=== PATIENT | male | born 1990 | race Caucasian/White ===

== ENCOUNTER 2020-04-22 01:54 | Outpatient (CLI) | payer BC, SELFPAY ==
[2020-04-22 07:56] LABS: Hemoglobin A1C 5.2 % (<5.7)
[2020-04-22 09:01] LABS: Calculated LDL 143 mg/dL (<100); Cholesterol 209 mg/dL (<200); HDL Cholesterol 28 mg/dL (40-60); Triglyceride 191 mg/dL (<150)
== END 2020-04-22 02:14 ==
PROVIDERS: PCP Nurse Practitioner Family; Visit Provider Nurse Practitioner Family
DX: Z13.1 Encounter for screening for diabetes mellitus (principal); Z13.220 Encounter for screening for lipoid disorders
CPT/HCPCS: 36415; 80061; 83036

== ENCOUNTER 2021-08-08 02:32 | Emergency (ER) | payer BC, SELFPAY ==
[2021-08-08 02:35] VITALS: PULSE 88; RESP 18; TEMP 36.7; O2SAT 99
[2021-08-08 02:38] VITALS: BP 165/100
--- NOTE | 2021-08-08 02:43 | W.ED.GENAD ---
Discharge Plan Disposition Patient Disposition: HOME Condition: Stable Discharge Details Clinical Impression: Gastroesophageal reflux disease, Hematemesis Primary Care Provider: Rajat Ta ED Provider: Alban Ken Home Meds and New Rx's Prescriptions: New omeprazole 40 mg capsule,delayed release(DR/EC) 40 mg PO DAILY Qty: 30 0RF Discharge Instructions Instructions: GERD (Gastroesophageal Reflux Disease) (ED) Additional Instructions: Your blood work did not show evidence of life threatening bleed and your vital signs were normal Your white cell count was elevated which is likely a stress response. You should have your cbc rechecked with your primary care provider within 1-2 weeks if you feel more ill, have difficulty breathing, chest or abdominal pain return to the emergency department or if you have repeated episodes of bloody vomit you should be contacted with an appointment with general surgery Medical Decision Making 31 yo male with hx of gerd normally treated with nexium but hasn't taken in month's due to cost per patient comes in with an episode where he had bright red blood in his vomit. He states it is not uncommon for him to wake up and have upset stomach and sometimes vomit. He went to bed feeling well but then woke up with nausea and had an episode of vomit. He then vomitted again and had bright red blood x2. Denies any history of hepatic disease. He has a few alcoholic beverages a week. He arrives stable and in no distress. He is speaking in full sentences, clear lungs, soft nontender abdomen and no chest pain. No melena. Suspect this is related to his gerd and possible ulcer, no findings to suggest underlying liver disease. Will obain cbc and cmp and treat with ppi. labs show wbc of 27 otherwise unremarkable. He denies any recent fevers or infectious symptoms and suspect this could be a stress response. He is asymptomatic still and has no abdominal tenderness at all. His ezio blatchford score is 0 so he is low risk enough for outpatient follow up and he is comfortable with this. Will start ppi and refer to general surgery holden, return precautions given Differential Diagnosis Differential Diagnosis: ulcer, maggy parker, upper gi bleed Medical Records Medical records reviewed: Yes I reviewed the patient's medical records. Lab Data Lab results reviewed: Yes I reviewed the patient's lab results. HPI General Mode of arrival: ambulatory. Date/Time Provider Initiated Documentation: 08/08/21 02:34. Limitations to Documentation: no limitations. Information obtained by: patient. History of Present Illness 31 year old M presents to the emergency department with the chief complaint of vomit blood, described as moderate, Patient started experiencing this hour(s) (1) and it has been now resolved. improves with No relieving factors improve symptom(s), No exacerbating factors reported . Patient did receive the following treatments prior to arrival, none Related Data Home Medications Medication Instructions Recorded Confirmed omeprazole 40 mg capsule,delayed 40 mg PO DAILY #30 cap 08/08/21 release Previous Rx's Medication Instructions Recorded omeprazole 40 mg capsule,delayed 40 mg PO DAILY #30 cap 08/08/21 release Allergies Allergy/AdvReac Type Severity Reaction Status Date / Time No Known Allergies Allergy Verified 04/16/20 09:03 General Stated Complaint: Nausea/Vomit/Diar KATELYN: 3 Review of Systems All systems reviewed & are unremarkable except as noted in HPI and below Constitutional Constitutional: Denies chills, Denies fever(s) and Denies weakness Eyes Eyes: Denies loss of vision ENT Ears, Nose, Mouth, and Throat: Denies change in voice Cardiovascular Cardiovascular: Denies chest pain and Denies dyspnea Respiratory Respiratory: Denies cough and Denies dyspnea Integumentary/Breasts Skin/Breast: Denies rash Neurologic Neurologic: Denies loss of vision and Denies weakness PFSH All Active Problems (Updated 08/08/21 @ 03:35 by Alban Ken MD) Hematemesis (Acute) Smoker (Acute) Screening cholesterol level (Acute) Diabetes mellitus screening (Acute) Acromioclavicular joint separation, type 3 (Acute 12/22/15) Gastroesophageal reflux disease (Acute 07/01/15) Medical History (Updated 08/08/21 @ 03:35 by Alban Ken MD) Anxiety GERD (gastroesophageal reflux disease) Surgical History (Updated 09/27/17 @ 10:37 by Bebe Mesa RN) EGD - MAC (09/21/17) Family History (Updated 04/21/20 @ 08:59 by Rose Marie Tsai) Mother Diabetes Brother Depression Alcohol abuse Grandmother Diabetes Social History (Updated 04/21/20 @ 08:58 by Rose Marie Tsai) Smoking/Tobacco Use Status: Current every day Tobacco Type: cigarettes Smoking packs per day: 1.5 Smoking cigarettes per day: 30.0 Second Hand Exposure: Yes Smoking risk assessment performed?: Yes Alcohol Intake: current Alcohol Intake frequency: a few times a week Alcohol type: hard liquor Drug use: Daily Substance use type: marijuana Caregiver/Support person: No Household members: significant other and children Housing: house Communication Needs: None Do you need help understanding health information?: Never Pets and animals: Yes Pets and animals: cat(s) and dog(s) Sexually active: Yes Do you think of yourself as: straight/heterosexual Current gender identity: male What is your relationship status?: living with partner How often do you talk on the phone with friends or family?: three or more times per week How often do you get together with friends or relatives?: once per week How often do you attend denominational or baptism services?: 1-3 times per year Do you belong to any clubs or organized social groups?: no Panel score (0-1 are the most socially isolated patients): 2 What type of physical activity do you participate in: none Shanique/Scientologist: Rastafari Special shanique needs: No Seatbelt use: always Helmet use: Yes Helmet use: always Drive intox or ride w/intox taxi cab driver: No Do you feel safe at home: Yes Do you feel safe in your relationship?: Yes Victim of physical abuse: No Victim of emotional abuse: No Victim of sexual abuse: No Would you like helpful sources: No Exam Const General: no acute distress Orientation: alert HENID Head: normal to inspection Ears: external ears normal General nose exam: external nose normal Mouth: moist mucous membranes Eyes General: appearance normal, both eyes and all related structures Neck Neck: normal visual inspection Resp Effort & Inspection: normal respiratory effort and able to speak in complete sentences Cardio Rate: regular rate GI Palpation: soft and nontender Skin General skin exam: no rashes or lesions noted Neuro General: patient alert and patient oriented x3 Extrem General: normal to inspection Psych Mental Status: mental status grossly normal Course Vital Signs Vital signs: Vital Signs Temperature 36.7 C 08/08/21 02:35 Pulse 88 08/08/21 02:35 Respiratory Rate 18 08/08/21 02:35 Pulse Oximetry 99 08/08/21 02:35 Temperature 36.7 C 08/08/21 02:35 Temperature Source Tympanic 08/08/21 02:35 Pulse 88 08/08/21 02:35 Respiratory Rate 18 08/08/21 02:35 Respiratory Effort 08/08/21 02:37 Blood Pressure 165/100 H 08/08/21 02:38 Blood Pressure Position Supine 08/08/21 02:35 Pulse Oximetry 99 08/08/21 02:35 Oxygen Delivery Method Room Air 08/08/21 02:35 Oxygen Flow Rate 0 08/08/21 02:35 Pain Level 6 08/08/21 02:35 PAWSS Have you Been Recently Intoxicated or Drunk Within the Last 30 days?: Yes Have you Ever Experienced Previous Episodes of Alcohol Withdrawal?: No Have you ever Experienced Withdrawal Seizures?: No Have you ever Experienced Delirium Tremens(DT)s?: No Have you ever undergone Alcohol Rehabilitation Treatment (i.e, inpt ot outpatient treatment programs)?: No Have you ever Experienced Blackouts?: No Have you ever Combined Alcohol with other Downers within the last 90 days?: No Have you ever Combined Alcohol with any other Substance of Abuse during the last 90 days?: No Positive Blood Alcohol level on Presentation? [PCS.BAL]: No Evidence of Increased Autonomic Activity (i.e. HR>120, tremor, sweating, agitation, nausea)?: No Result: 1
[2021-08-08] MEDS: Pantoprazole 40 MG VIAL IVP (02:48)
[2021-08-08 02:51] LABS: Abs Immature Grans 0.16 10^3/uL (0.0-0.06); Absolute Basophil Count 0.11 10^3/uL (0.0-0.2); Absolute Lymphocyte Count 3.63 10^3/uL (1.2-3.4); Absolute Monocyte Count 1.73 10^3/uL (0.1-0.8); Absolute Neutrophil Count 21.76 10^3/uL (1.2-6.7); Basophils % 0.4; Eosinophils % 0.4; HCT 48.6 % (40.0-50.0); HGB 16.5 g/dL (13.5-17.5); Immature Grans % 0.6; Lymphocytes % 13.2; MCH 30.3 pg (27.0-33.0); MCV 89.3 fL (80-95); MPV 9.4 fL (8.0-11.0); Monocytes % 6.3; Neutrophils % 79.1; Nucleated RBC 0 %; Platelet Count 303 10^3/uL (130-400); RBC 5.44 10^6/uL (4.36-5.78); RDW 13.2 % (11.8-14.1); RDW-SD 43.2 fL
[2021-08-08 02:57] LABS: Absolute Eosinophil Count 0.11 10^3/uL (0.0-0.7)
[2021-08-08 02:58] LABS: WBC 27.51 10^3/uL (4.4-10.8)
[2021-08-08 03:09] LABS: ALT 61 U/L (16-63); AST 26 U/L (15-37); Alkaline Phosphatase 106 U/L (46-116); Anion Gap 8.5 mmol/L (3-11); BUN 12 mg/dL (7-18); Bilirubin, Total 0.4 mg/dL (0.2-1.0); CO2 28.5 mmol/L (21.0-32.0); Calcium 9.1 mg/dL (8.5-10.1); Chloride 105 mmol/L (98-107); Glucose 111 mg/dL (74-106); Magnesium 1.9 mg/dL (1.8-2.4); Potassium 4.1 mmol/L (3.5-5.1); Sodium 142 mmol/L (136-145); Total Protein 7.6 g/dL (6.4-8.2)
[2021-08-08 03:12] LABS: ETHANOL BLOOD < 3.0 mg/dL (<10)
[2021-08-08 03:20] LABS: Diff Comment Agrees w/ Instrument; RBC Morphology Normal
== END 2021-08-08 03:55 | disposition home or self-care (01) ==
LOC: ER 03:59
PROVIDERS: Emergency Provider Emergency Medicine; PCP Nurse Practitioner Family
DX: K21.9 Gastro-esophageal reflux disease without esophagitis (principal); K90.9 Intestinal malabsorption, unspecified; D72.829 Elevated white blood cell count, unspecified
CPT/HCPCS: 80053; 86850; 86900; 86901; 96374; 99284; 80320; 83735; 85025; 99283